=== PATIENT | female | born 1980 | race Caucasian/White ===

== ENCOUNTER 2021-05-19 06:43 | Emergency (ER) | payer OTHER ==
[~2021-05-19] VITALS: Ht 162.5 cm; Wt 81.6 kg
[~2021-05-19 06:43] MED LIST: AMOXICILLIN500 MG PO; ANTIVERT25 MG PO; AUGMENTIN 875 M1 TAB PO; BIAXIN500 MG PO; CIPRODEX 0.3%-7.5 ML OT; CLARITIN10 MG PO; DARVOCET N 1001 TAB PO; KEFLEX500 MG PO; MOTRIN800 MG PO; PEN-VEE K500 MG PO; ROXICET ORAL SOL5 ML PO; ZITHROMAX Z PA250 MG PO
[2021-05-19 06:51] VITALS: BP 148/77
[2021-05-19] MEDS ORDERED: NAPROXEN250 MG PO (07:34)
[2021-05-19] MEDS ORDERED: TYLENOL325 M1 PO (07:34)
[2021-05-19] MEDS ORDERED: AMOXICILLIN500 M3 PO (07:34)
== END 2021-05-19 07:53 | disposition home or self-care (01) ==
LOC: ED 06:43
DX: K02.9 Dental caries, unspecified (principal); E66.9 Obesity, unspecified; Z87.891 Personal history of nicotine dependence

== ENCOUNTER 2024-04-15 07:50 | Emergency (ER) | payer OTHER ==
[~2024-04-15] VITALS: Ht 162.5 cm; Wt 86.2 kg
[~2024-04-15 07:50] MED LIST changes: +AMOXICILLIN500 M3 PO; +NAPROXEN250 MG PO; +TYLENOL325 M1 PO
[2024-04-15 08:10] VITALS: BP 150/64
[2024-04-15] MEDS ORDERED: AMOX-CLAV 875-1 EACH PO (08:30)
[2024-04-15] MEDS ORDERED: Amoxicillin/Clavulanate Pota 875 MG TAB PO ONE (08:30)
== END 2024-04-15 09:13 | disposition home or self-care (01) ==
LOC: ED 07:50
DX: L03.012 Cellulitis of left finger (principal); Z90.89 Acquired absence of other organs